=== PATIENT | male | born 1935 | race Caucasian/White ===

== ENCOUNTER → 2018-12-18 | Outpatient (CLI) | payer OTHER | END | disposition home or self-care (01) | LOC: CFH 13:34 | PROVIDERS: ATTEND Internal Medicine Nephrology | DX: N62 Hypertrophy of breast (principal); R91.1 Solitary pulmonary nodule; Z88.0 Allergy status to penicillin; Z91.09 Other allergy status, other than to drugs and biological substances | CPT/HCPCS: 77066 ==